=== PATIENT | female | born 1980 | race Caucasian/White ===

== ENCOUNTER 2024-12-05 07:31 | Outpatient (CLI) | payer BC | END 2024-12-05 07:32 | disposition home or self-care (01) | LOC: SCSMRI 07:31 | PROVIDERS: ATTEND Orthopaedic Surgery | DX: S92.001K Unspecified fracture of right calcaneus, subsequent encounter for fracture with nonunion (principal); S92.134A Nondisplaced fracture of posterior process of right talus, initial encounter for closed fracture ==